=== PATIENT | male | born 1975 | race Caucasian/White ===

== ENCOUNTER 2016-11-26 17:01 | Emergency (ER) | payer BC ==
--- NOTE | 2016-11-28 01:15 | ER ---
ADMIT: 11/26/2016 RM/LOC: ER [facility] MR#: [id number] [address] [id number] GRETCHEN YOON [address] [place] [address] Emergency Room Report SEX: M AGE: 41 : 1975 DATE: 11/26/2016 For chief complaint, history of present illness, past medical history, medications, allergies, review of systems, including physical exam, please see my T-sheet. INTERIM HISTORY: The patient is a 41-year-old white male, presents to the emergency room with back pain. It is uncertain of the etiology, may be started last week after he had lifted a tub of books. He has had pain off and on. [facility] and had a complete work up. He had been placed on a muscle relaxer. Everything has been negative. He was there today and they sent him over here for a CT scan. Initially, the patient was given some pain relief and muscle relaxer. He reports no improvement and no symptoms. CT shows nothing acute. IMPRESSION: Leg pain. I think this is all musculoskeletal. Home, rest, activity as tolerated. Continue on muscle relaxers and pain relievers and also continue on the anti-inflammatories as previously prescribed by the [facility]. [facility] if symptoms or problems persist or worsen. He may consider physical therapy for strengthening and mobility as well as MRI for imaging of the back. The patient is in stable condition at discharge. LOUIS Lara / Spencer Mcrae MD / selinal JOB #: [id number] CC: Jamin Dutton MD, Attending Physician [facility], Family Physician
== END 2016-11-26 19:58 | disposition home or self-care (01) ==
LOC: ER 17:01
DX: R10.9 Unspecified abdominal pain (principal); M79.1 Myalgia; Z79.899 Other long term (current) drug therapy